=== PATIENT | male | born 1970 | race Caucasian/White ===

== ENCOUNTER 2022-09-09 21:52 | Inpatient (IN) | payer OTHER ==
[~2022-09-09] VITALS: Ht 175.3 cm; Wt 85.0 kg
[2022-09-09] MEDS ORDERED: AMIODARONE HCL (50 MG/ ML) 3 ML VIAL IV ONE (21:55)
[2022-09-09] MEDS ORDERED: ETOMIDATE (2MG/ML) 20ML VIAL IV ONE (21:55)
[2022-09-09] MEDS ORDERED: fentaNYL CITRATE 100 MCG/2 ML VL ONE (22:01)
[2022-09-09] MEDS ORDERED: AMIODARONE 450mg/250ml AE 250 ML IV ONE (22:03)
[2022-09-09 22:22] LABS: Basophils # (auto) 0 10 ^3/uL (0-0.2); Basophils % (auto) 0.2 % (0.0-2.0); Eosinophils # (auto) 0 10 ^3/uL (0-0.8); Eosinophils % (auto) 0.3 % (0.0-7.0); Hematocrit 44.5 % (41.0-53.0); Hemoglobin 15.7 g/dL (13.5-17.5); Lymphocytes % (auto) 93.4 % (10.0-50.0); Mean Corpuscular Hemoglobin 31.2 pg (28.0-32.0); Mean Corpuscular Hgb Conc. 35.2 g/dL (32.0-36.0); Mean Corpuscular Volume 88.6 fL (80.0-100.0); Monocytes # (auto) 0.1 10 ^3/uL (0-1.3); Monocytes % (auto) 2.1 % (0.0-12.0); Neutrophils # (auto) 0.3 10 ^3/uL (1.6-8.6); Nucleated Red Blood Cells % 0.5 %; Red Blood Cells 5.02 10^6/uL (4.5-5.90); Red Cell Distribution Width 12.7 % (11.8-14.3); White Blood Cell 6.5 10^3/uL (4.4-10.8)
[2022-09-09 22:38] LABS: INR 1.08 (0.9-1.15); Partial Thromboplastin Time 27.7 sec (24.6-33.4)
[2022-09-09 22:39] LABS: Albumin 3.8 g/dL (3.4-5.0); BUN/Creatinine Ratio 11.1 (10.0-20.0); Calcium 8.4 mg/dL (8.5-10.1); Magnesium 2.4 mg/dL (1.6-2.6); Potassium 4.3 mmol/L (3.5-5.1)
[2022-09-09 22:42] LABS: Bilirubin, Total 0.9 mg/dL (0.2-1.0); Total Protein 6.5 g/dL (6.4-8.2)
[2022-09-09] MEDS ORDERED: DOCUSATE SOD 100 MG CAP PO PRN (23:00)
[2022-09-09] MEDS ORDERED: IBUPROFEN 600 MG TAB PO PRN (23:00)
[2022-09-09] MEDS ORDERED: ONDANSETRON HCL 4 MG/2 ML VIAL IV PRN (23:00)
[2022-09-10] MEDS ORDERED: NITROGLYCERIN 0.4 MG SL TAB SL PRN
[2022-09-10] MEDS ORDERED: MORPHINE SULFATE INJ 2 MG/ml SYRG IV PRN
[2022-09-10] MEDS ORDERED: AMIODARONE HCL 150 MG in D5W 5% 100 ML IV ONE (01:00)
[2022-09-10] MEDS: SODIUM CHLORIDE 0.9% 1,000 ML IV SCH ×3 (01:01→23:45)
[2022-09-10 05:00] LABS: Basophils # (auto) 0 10 ^3/uL (0-0.2); Basophils % (auto) 0.3 % (0.0-2.0); Eosinophils # (auto) 0.1 10 ^3/uL (0-0.8); Eosinophils % (auto) 0.5 % (0.0-7.0); Hematocrit 40.8 % (41.0-53.0); Hemoglobin 14.7 g/dL (13.5-17.5); Lymphocytes # (auto) 1.8 10 ^3/uL (0.4-5.4); Lymphocytes % (auto) 15.1 % (10.0-50.0); Mean Corpuscular Hemoglobin 31.5 pg (28.0-32.0); Mean Corpuscular Volume 87.4 fL (80.0-100.0); Monocytes # (auto) 1.2 10 ^3/uL (0-1.3); Monocytes % (auto) 10.4 % (0.0-12.0); Neutrophils # (auto) 8.8 10 ^3/uL (1.6-8.6); Neutrophils % (auto) 73.7 % (37.0-80.0); Red Blood Cells 4.67 10^6/uL (4.5-5.90); Red Cell Distribution Width 12.5 % (11.8-14.3); White Blood Cell 11.9 10^3/uL (4.4-10.8)
[2022-09-10 05:08] LABS: Calcium 8.2 mg/dL (8.5-10.1); Potassium 4.2 mmol/L (3.5-5.1)
[2022-09-10 05:12] LABS: BUN/Creatinine Ratio 12.8 (10.0-20.0); Bilirubin, Total 0.8 mg/dL (0.2-1.0); Total Protein 6.5 g/dL (6.4-8.2)
[2022-09-10] MEDS: FAMOTIDINE (10MG/ML) 2ML VL IV SCH (10:02)
[2022-09-10] MEDS: ASPirin 81 mg TAB PO SCH ×2 (10:02→15:46)
[2022-09-10] MEDS: AMIODARONE HCL 200 MG TAB PO SCH ×2 (10:02→21:29)
[2022-09-10] MEDS ORDERED: AMIO200T33 PO (12:24)
[2022-09-10] MEDS ORDERED: ALPR0.254 PO (12:24)
[2022-09-10] MEDS ORDERED: ATOR20TA50 PO (12:24)
[2022-09-10] MEDS ORDERED: METO-289 PO (12:24)
[2022-09-10] MEDS: ALPRAZolam 0.25 MG TAB PO PRN (13:52)
[2022-09-10] MEDS: METOPROLOL SUCCINATE XL 50 MG TAB PO SCH (13:53)
[2022-09-10 16:04] LABS: Alcohol, Urine < 3.0 mg/dL (0-10); Barbiturate Scree,Urine NEGATIVE (NEGATIVE); Benzodiazephine Screen, Urine NEGATIVE (NEGATIVE); Cannabinoid Screen, Urine POSITIVE (NEGATIVE); Cocaine Screen, Urine NEGATIVE (NEGATIVE); Opiate Scree,Urine NEGATIVE (NEGATIVE)
[2022-09-10 16:12] LABS: Amphetamine Screen, Urine NEGATIVE (NEGATIVE); Phencyclidine Screen, Urine NEGATIVE (NEGATIVE)
[2022-09-10 17:47] VITALS: BP 140/86
[2022-09-10 17:50] VITALS: BP 140/86
[2022-09-10 20:00] VITALS: BP 137/78
[2022-09-10 22:00] VITALS: BP 137/78
[2022-09-10] MEDS ORDERED: ATORVASTATIN 20 MG TAB PO SCH (22:00)
[2022-09-11] VITALS (10 sets, daily range): BP systolic 115–147; BP diastolic 63–90
[2022-09-11 07:12] LABS: Potassium 4.1 mmol/L (3.5-5.1)
[2022-09-11 07:21] LABS: Albumin 3.9 g/dL (3.4-5.0); BUN/Creatinine Ratio 13.6 (10.0-20.0); Bilirubin, Total 0.9 mg/dL (0.2-1.0); Calcium 8.1 mg/dL (8.5-10.1); Total Protein 6.4 g/dL (6.4-8.2)
[2022-09-11] MEDS: SODIUM CHLORIDE 0.9% 1,000 ML IV SCH ×2 (08:20→13:05)
[2022-09-11] MEDS ORDERED: MIDAZOLAM HCL 2MG/2ML 2ml VIAL (1mg/ml) ONE ×2 (09:35→10:26)
[2022-09-11] MEDS ORDERED: fentaNYL CITRATE 100 MCG/2 ML VL ONE ×2 (09:35→10:27)
[2022-09-11] MEDS ORDERED: VANCOMYCIN HCL 1000 MG VL ONE ×2 (09:36→09:59)
[2022-09-11] MEDS ORDERED: VANCOMYCIN 1GM/250ML 250 ML IV ONE (09:37)
[2022-09-11] MEDS ORDERED: LIDOCAINE 2%HCL (LOCAL ANESTH.) INJ 20ML MDV ONE (09:43)
[2022-09-11] MEDS: AMIODARONE HCL 200 MG TAB PO SCH ×2 (10:00→21:27)
[2022-09-11] MEDS: METOPROLOL SUCCINATE XL 50 MG TAB PO SCH (10:00)
[2022-09-11] MEDS: FAMOTIDINE (10MG/ML) 2ML VL IV SCH (10:00)
[2022-09-11] MEDS ORDERED: IODIXANOL 320MG/ML 100ML BTL IV ONE (10:01)
[2022-09-11] MEDS: HYDROcodone-ACET 5/325MG TAB PO PRN ×2 (15:08→21:28)
[2022-09-11] MEDS: MORPHINE SULFATE INJ 2 MG/ml SYRG IV PRN (19:53)
[2022-09-11] MEDS ORDERED: VANCOMYCIN PER PHARMACY 0 MG IV SCH (21:00)
[2022-09-11] MEDS: VANCOMYCIN 1GM/250ML 250 ML IV SCH (21:27)
[2022-09-11] MEDS: DOXYCYCLINE 100 MG TAB/CAP PO SCH (21:28)
[2022-09-11] MEDS: ALPRAZolam 0.25 MG TAB PO PRN (21:53)
[2022-09-12] MEDS: SODIUM CHLORIDE 0.9% 1,000 ML IV SCH ×2 (01:00→02:25)
[2022-09-12] MEDS: MORPHINE SULFATE INJ 2 MG/ml SYRG IV PRN (04:46)
[2022-09-12 05:00] VITALS: BP 124/79
[2022-09-12 05:16] VITALS: BP 112/66
[2022-09-12] MEDS ORDERED: VANCOMYCIN PER PHARMACY 0 MG IV SCH (09:00)
[2022-09-12] MEDS: VANCOMYCIN 1GM/250ML 250 ML IV SCH (09:41)
[2022-09-12] MEDS: FAMOTIDINE (10MG/ML) 2ML VL IV SCH (09:41)
[2022-09-12] MEDS: ASPirin 81 mg TAB PO SCH (09:48)
[2022-09-12] MEDS: DOXYCYCLINE 100 MG TAB/CAP PO SCH (09:48)
[2022-09-12] MEDS: AMIODARONE HCL 200 MG TAB PO SCH (09:53)
[2022-09-12] MEDS: METOPROLOL SUCCINATE XL 50 MG TAB PO SCH (09:53)
[2022-09-12] MEDS ORDERED: HYDR-4902 PO (10:17)
[2022-09-12] MEDS ORDERED: DOXY-286 PO (10:17)
[2022-09-13 10:11] LABS: Hepatitis B Surface Antibody Positive (Negative)
[2022-09-13 10:36] LABS: Hepatitis A Total Antibody Positive (Negative)
[2022-09-13 13:41] LABS: Hepatitis A Ab IgM Negative
[2022-09-13 13:42] LABS: Hepatitis B Core IgM Negative
[2022-09-13 13:48] LABS: Hepatitis C Antibody Negative (Negative)
== END 2022-09-12 12:30 | disposition home or self-care (01) | DRG 265 ==
LOC: ER 21:52 → EDBD 21:52 → TELE 23:54 → TELE-WESTW 09-10 17:36
PROVIDERS: ADMIT Nurse Practitioner Family; ATTEND Family Medicine
PROC: 0JH606Z Insertion of Pacemaker, Dual Chamber into Chest Subcutaneous Tissue and Fascia, Open Approach (ICD-10-PCS; principal; 2022-09-11)
PROC: 02HK3KZ Insertion of Defibrillator Lead into Right Ventricle, Percutaneous Approach (ICD-10-PCS; 2022-09-11)
PROC: B5171ZZ Fluoroscopy of Left Subclavian Vein using Low Osmolar Contrast (ICD-10-PCS; 2022-09-11)
DX: I47.20 Ventricular tachycardia, unspecified (principal); R57.9 Shock, unspecified; N17.9 Acute kidney failure, unspecified; I42.8 Other cardiomyopathies; R00.2 Palpitations; I46.2 Cardiac arrest due to underlying cardiac condition; R79.89 Other specified abnormal findings of blood chemistry; K76.0 Fatty (change of) liver, not elsewhere classified; E78.00 Pure hypercholesterolemia, unspecified; F12.10 Cannabis abuse, uncomplicated; Z82.5 Family history of asthma and other chronic lower respiratory diseases; Z82.49 Family history of ischemic heart disease and other diseases of the circulatory system
CPT/HCPCS: 36415; 71045; 76705; 80053; 80074; 80307; 83036; 83735; 83880; 84443; 84484; 85025; 85610; 85730; 86704; 86706; 86708; 86803; 87340; 93005; 93306; 96361; 96365; 96375; 99152; 99153; 99291; G0378; J2250; J2405; J3490; J7060; Q9967